=== PATIENT | female | born 1965 | race Caucasian/White ===

== ENCOUNTER → 2018-01-08 | Day surgery (SDC) | payer BC, OTHER ==
--- NOTE | 2018-01-14 13:32 | PATH ---
Cytology Non-Gynecological Report Patient Name: ABRIL CAICEDO [facility]. Rec. #: [id number] /Age/Gender: 1965 (Age: 52) / F Account: [id number] Location: RADIOLOGY INTER Taken: 01/08/2018 Received: 01/09/2018 Reported: 01/10/2018 Physicians: Tayo Downing M.D. Specimen(s) Received THYROID FNA RIGHT Clinical History Right thyroid nodule, 1.51 x 1.51 x 0.93 cm Final Diagnosis THYROID, RIGHT, FINE NEEDLE ASPIRATION: SATISFACTORY FOR EVALUATION. [place] CLASS II: BENIGN. CYTOLOGIC FINDINGS ARE CONSISTENT WITH A BENIGN FOLLICULAR NODULE. SMALL FOLLICULAR CELLS AND COLLOID PRESENT. Electronically Signed Aiyana Palmer M.D. Gross Description Received are eight direct smears, four of which are air-dried and Diff-Quik stained, and four of which are alcohol fixed and Pap stained. Also received is 20 ml of bloody formalin from which one cellblock is prepared.
== END | disposition home or self-care (01) ==
LOC: JRADIR 08:31
PROVIDERS: ATTEND Internal Medicine Endocrinology, Diabetes & Metabolism
PROC: 0GJK3ZZ Inspection of Thyroid Gland, Percutaneous Approach (ICD-10-PCS; principal; 2018-01-08)
PROC: BG44ZZZ Ultrasonography of Thyroid Gland (ICD-10-PCS; 2018-01-08)
DX: D34 Benign neoplasm of thyroid gland (principal)
CPT/HCPCS: 76942; 88173; 88305-TC